=== PATIENT | male | born 1980 | race Caucasian/White ===

== ENCOUNTER 2018-12-23 03:12 | Emergency (ER) | payer SELFPAY ==
[~2018-12-23] VITALS: Ht 188 cm; Wt 122.9 kg
[2018-12-23 03:40] LABS: HEMOGLOBIN 15.8 G/DL (13.3-17.7); MEAN CORPUSCULAR HEMOGLOBIN 31 PG (25-34); WHITE BLOOD COUNT 12.4 10^3/uL (4.3-11.0)
[2018-12-23 03:41] LABS: BASOPHILS # (AUTO) 0.1 10^3/uL (0.0-0.1); BASOPHILS % (AUTO) 1 % (0-10); EOSINOPHILS # (AUTO) 0.2 10^3/uL (0.0-0.3); EOSINOPHILS % (AUTO) 2 % (0-10); HEMATOCRIT 46 % (40-54); LYMPHOCYTES # (AUTO) 3.9 X 10^3 (1.0-4.0); LYMPHOCYTES % (AUTO) 31 % (12-44); MEAN CORPUSCULAR HGB CONC 35 G/DL (32-36); MEAN CORPUSCULAR VOLUME 88 FL (80-99); MEAN PLATELET VOLUME 10.4 FL (7.4-10.4); MONOCYTES # (AUTO) 1.4 X 10^3 (0.0-1.0); MONOCYTES % (AUTO) 11 % (0-12); NEUTROPHILS # (AUTO) 6.8 X 10^3 (1.8-7.8); NEUTROPHILS % (AUTO) 55 % (42-75); PLATELET COUNT 252 10^3/uL (130-400); RED CELL DISTRIBUTION WIDTH 12.3 % (10.0-14.5)
[2018-12-23 03:58] LABS: PROTHROMBIN TIME PATIENT 13.1 SEC (12.2-14.7)
--- NOTE | 2018-12-23 03:58 | ED Cough/URI ---
General Chief Complaint: Coughing up blood Stated Complaint: COUGHING UP BLOOD Nursing Triage Note: PT STATES HE HAS BEEN COUGHING UP BLOOD TONIGHT. Sepsis Screen: No Definite Risk Source: patient, spouse History of Present Illness Date Seen by Provider: Dec 23, 2018 Time Seen by Provider: 03:12 Initial Comments 38-year-old male presenting with complaints of coughing up blood. He reports that he was having sex with his and started having a coughing fit. With this he started coughing up red to pink frothy sputum. He reports having a lot of pressure in his epigastric and center of his chest. He states that it feels very full. He reports having a lot of constant nasal drainage and sinus drainage. He does have a history of high blood pressure and takes hydrochlorothiazide and amlodipine for that. He does take aspirin for her back and body pain. He follows with Dr. Kilgore with cardiology from [facility] but had to cancel his last appointment because of vehicle troubles. He was not able to make it down to [place] for the appointment. He feels that his blood pressure medicines have not been working as well recently. However again he has not been able to make it down to see the doctor. He states that he only trusts Dr. Kilgore in terms of managing his care. Allergies and Home Medications Allergies Coded Allergies: No Known Drug Allergies (Unverified , 12/23/18) Patient Home Medication List Home Medication List Reviewed: Yes Review of Systems Review of Systems Constitutional: No chills, No dizziness, No fever, No malaise EENTM: nose congestion (chronic); No hoarseness, No epistaxis, No nose pain, No throat pain, No throat swelling Respiratory: cough, hemoptysis (started just prior to arriving in the emergency department), phlegm (chronically coughing up phlegm especially first thing in the morning) Cardiovascular: No chest pain, No edema, No palpitations, No syncope Gastrointestinal: no symptoms reported; No dysphagia, No heartburn, No nausea, No vomiting Genitourinary: no symptoms reported Musculoskeletal: no symptoms reported Skin: no symptoms reported Psychiatric/Neurological: No Symptoms Reported Past Yfnzynn-Xchvjs-Iksjut Hx Past Med/Social Hx: Reviewed Nursing Past Med/Soc Hx Patient Social History Alcohol Use: Rarely Uses Recreational Drug Use: No Smoking Status: Never a Smoker 2nd Hand Smoke Exposure: No Recent Foreign Travel: No Contact w/Someone Who Travel: No Recent Infectious Disease Expo: No Recent Hopitalizations: No Physical Abuse: No Sexual Abuse: No Mistreated: No Past Medical History Surgeries: No Respiratory: No Cardiac: Yes Chronic Edema/Swelling, Hypertension Neurological: No Genitourinary: No Gastrointestinal: No Musculoskeletal: No Endocrine: Yes Diabetes, Non-Insulin dep HEENT: No Cancer: No Psychosocial: No Integumentary: No Blood Disorders: No Physical Exam Vital Signs - First Documented 12/23/18 03:19 Temp 97.3 Pulse 110 Resp 20 B/P (MAP) 145/92 (109) Pulse Ox 92 O2 Delivery Room Air Capillary Refill : Less Than 3 Seconds Height: 6'2.00" Weight: 271lbs. oz. 122.691680bq; BMI Method:Stated General Appearance: WD/WN, mild distress (and nonstress and worried about his coughing up blood), obese HEENT: pharynx normal, other (left eye deviated with strabismus) Neck: non-tender, full range of motion, supple, normal inspection Respiratory: chest non-tender, no respiratory distress, no accessory muscle use, rhonchi Cardiovascular: normal peripheral pulses, no edema, tachycardia Gastrointestinal: normal bowel sounds, non tender, soft, no pulsatile mass Extremities: normal range of motion, non-tender, normal inspection, no pedal edema, no calf tenderness Neurologic/Psychiatric: alert, normal mood/affect, oriented x 3 Skin: normal color, warm/dry Progress/Results/Core Measures Suspected Sepsis Recent Fever Within 48 Hours: No Infection Criteria Present: None New/Unexplained Altered Menta: No Sepsis Screen: No Definite Risk SIRS Temperature:97.3 Pulse: 110 Respiratory Rate: 20 Laboratory Tests 12/23/18 03:23: White Blood Count 12.4H Blood Pressure 145 /92 Mean: 109 Laboratory Tests 12/23/18 03:23: Creatinine 0.94, INR Comment 1.0, Platelet Count 252, Total Bilirubin 0.6 Results/Orders Lab Results Laboratory Tests Test 12/23/18 03:23 Range/Units White Blood Count 12.4 H 4.3-11.0 10^3/uL Red Blood Count 5.15 4.35-5.85 10^6/uL Hemoglobin 15.8 13.3-17.7 G/DL Hematocrit 46 40-54 % Mean Corpuscular Volume 88 80-99 FL Mean Corpuscular Hemoglobin 31 25-34 PG Mean Corpuscular Hemoglobin Concent 35 32-36 G/DL Red Cell Distribution Width 12.3 10.0-14.5 % Platelet Count 252 130-400 10^3/uL Mean Platelet Volume 10.4 7.4-10.4 FL Neutrophils (%) (Auto) 55 42-75 % Lymphocytes (%) (Auto) 31 12-44 % Monocytes (%) (Auto) 11 0-12 % Eosinophils (%) (Auto) 2 0-10 % Basophils (%) (Auto) 1 0-10 % Neutrophils # (Auto) 6.8 1.8-7.8 X 10^3 Lymphocytes # (Auto) 3.9 1.0-4.0 X 10^3 Monocytes # (Auto) 1.4 H 0.0-1.0 X 10^3 Eosinophils # (Auto) 0.2 0.0-0.3 10^3/uL Basophils # (Auto) 0.1 0.0-0.1 10^3/uL Prothrombin Time 13.1 12.2-14.7 SEC INR Comment 1.0 0.8-1.4 Activated Partial Thromboplast Time 28 24-35 SEC Sodium Level 143 135-145 MMOL/L Potassium Level 3.6 3.6-5.0 MMOL/L Chloride Level 102 98-107 MMOL/L Carbon Dioxide Level 24 21-32 MMOL/L Anion Gap 17 H 5-14 MMOL/L Blood Urea Nitrogen 24 H 7-18 MG/DL Creatinine 0.94 0.60-1.30 MG/DL Estimat Glomerular Filtration Rate > 60 BUN/Creatinine Ratio 26 Glucose Level 131 H 70-105 MG/DL Calcium Level 9.5 8.5-10.1 MG/DL Corrected Calcium 8.5-10.1 MG/DL Total Bilirubin 0.6 0.1-1.0 MG/DL Aspartate Amino Transf (AST/SGOT) 24 5-34 U/L Alanine Aminotransferase (ALT/SGPT) 33 0-55 U/L Alkaline Phosphatase 60 40-136 U/L Total Protein 7.7 6.4-8.2 GM/DL Albumin 4.7 H 3.2-4.5 GM/DL My Orders Orders - CHICHO WILDER MD Cbc With Automated Diff (12/23/18 03:21) Comprehensive Metabolic Panel (12/23/18 03:21) Ed Iv/Invasive Line Start (12/23/18 03:21) Sputum Culture (12/23/18 03:21) Protime With Inr (12/23/18 03:21) Partial Thromboplastin Time (12/23/18 03:21) Ekg Tracing (12/23/18 03:40) Continuous Ekg Monitoring (12/23/18 03:40) Ct Chest W (12/23/18 03:51) Iohexol Injection (Omnipaque 350 Mg/Ml 1 (12/23/18 04:00) Ns (Ivpb) (Sodium Chloride 0.9% Ivpb Bag (12/23/18 04:00) Received Contrast (Hold Metformin- Contr (12/23/18 04:00) Ceftriaxone For Iv Use (Rocephin For I (12/23/18 05:37) Levofloxacin Tablet (Levaquin Tablet) (12/23/18 05:37) Levofloxacin Tablet (Levaquin Tablet) (12/23/18 05:35) Medications Given in ED Current Medications Medications Dose Ordered Sig/Trinity Route Start Time Stop Time Status Last Admin Dose Admin Iohexol 75 ml ONCE ONCE IV 12/23/18 04:00 12/23/18 04:01 DC 12/23/18 04:28 75 ML Sodium Chloride 100 ml ONCE ONCE IV 12/23/18 04:00 12/23/18 04:01 DC 12/23/18 04:27 100 ML Vital Signs/I&O 12/23/18 12/23/18 03:19 05:54 Temp 97.3 Pulse 110 102 Resp 20 20 B/P (MAP) 145/92 (109) 152/89 (110) Pulse Ox 92 95 O2 Delivery Room Air Room Air Capillary Refill : Less Than 3 Seconds Blood Pressure Mean: 109 Progress Note #1: Progress Note Check labs as well as electrocardiogram and CT of the chest to evaluate his sudden onset of hemoptysis. He does report having something similar happen with his nose and mouth when he had elevated blood pressure. On initial check of his blood pressure was higher when he first arrived. He stated that he take his blood pressure medicine about 30-45 minutes prior to arriving in the ED. He says that he usually takes his blood pressure medicine around 2 AM. Progress Note #2: Time: 04:50 Progress Note labs show mild elevation of WBC count, stable H/H, Coags are normal. Chemistry stable with mild elevation of his Glucose. Await CT scan with IV contrast to evaluate further for his Hemoptysis. Progress Note #3: Time: 05:[address] scan shows groundglass infiltrates in the right upper lobe and right middle lobe and portion of the right lower lobe. Findings are nonspecific and can represent a mild interstitial pneumonitis her developing interstitial alveolar hemorrhage. This was per the radiology reading from stat round by Dr. Sarah MD. With him having continued hemoptysis and cough with shortness of breath will cover him with antibiotics and d/w him transfer to [facility] for admit for pulmonary evaluation and probable bronchoscopy. Progress Note #4: Time: 05:47 Progress Note After having extensive discussion with the patient he voices understanding that he is putting himself at risk and taking his own life in his hands and could potentially have increased bleeding or possibility even but still chooses to go AGAINST MEDICAL ADVICE and they have the emergency department. He wants to go home and have his family take him to [facility]. I advised him to see Dr. Viveros with pulmonology and if he cannot get in with the clinic to be seen by Dr. Viveros today and then go to the emergency department. If his cough persists her cough gets worse this morning prior to being able to be seen them return or go immediately to the emergency department in [place]. If he felt that he needed to be seen with cardiology or Dr. Avelar then he [facility] [place] [facility] We will treat him with a dose of Rocephin IV and an oral dose of Levaquin here. As a cannot fully delineate if this or hemoptysis is from a infection of his lungs on the right side or the developing interstitial alveolar hemorrhage as reported for possible diagnosis on the CT scan I strongly urged the patient to follow up this morning with pulmonology or the ER in [place] so he could be further evaluated and treated for this. He states that he will do this but that he does not have any insurance and does not want a big bill. 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 I advised him that the hospital does have a ave program and paperwork he can fill out for financial assistance but he still wanted to go AMA and have his family take him to the hospital later this morning. ECG Initial ECG Impression Date: Dec 23, 2018 Initial ECG Impression Time: 03:32 Initial ECG Rate: 105 Initial ECG Rhythm: S.Tach Initial ECG Comparisson: No Previous ECG Available Comment Sinus tachycardia with heart rate of 105 bpm. PA interval 150 ms. Left ventricular hypertrophy with secondary repolarization abnormality. No acute ST elevation. Occasional unipolar PVC. No prior tracing for comparison Diagnostic Imaging Diagonstic Imaging: CT Plain Films/CT/US/NM/MRI: chest Comments Impression 1. Groundglass infiltrates in the right upper lobe, right middle lobe and a portion of the right lower lobe. Findings are nonspecific and can represent a mild interstitial pneumonitis or developing interstitial alveolar hemorrhage. Radiologist Dr. Dave Smith M.D. Read at 4:49 AM and initial results transmitted at 4:59 AM. Reviewed: Reviewed Night [facility] Study Departure Impression Primary Impression: Left against medical advice Additional Impressions: Cough with hemoptysis Pulmonary alveolar hemorrhage Pneumonitis Disposition: 07 AGAINST MEDICAL ADVICE Condition: Against Medical Advice Departure-Patient Inst. Decision time for Depature: 05:55 Referrals: MARK VIVEROS DO Patient Instructions: Coughing up Blood, Leaving Against Medical Advice, Pneumonitis (DC) Add. Discharge Instructions: Go to see Dr. Viveros with Pulmonology at [facility] this AM as soon as possible. If you can not get in with him emergently then go to the Emergency Department at [facility] for further treatment and evaluation of your coughing up blood. Return or be seen immediately if you have worsening symptoms All discharge instructions reviewed with patient and/or family. Voiced understanding. CHICHO WILDER MD Dec 23, 2018 03:58
[2018-12-23] MEDS ORDERED: NS 100 ML (IVPB) BAG IV ONE (04:00)
[2018-12-23] MEDS ORDERED: IOHEXOL 350 MG/ML 100 ML (OMNIPAQUE 350) VIAL IV ONE (04:00)
[2018-12-23] MEDS ORDERED: HOLD METFORMIN - RECEIVED CONTRAST 20 ML VIAL IV SCH (04:00)
[2018-12-23 04:07] LABS: BUN/CREATININE RATIO 26; CARBON DIOXIDE 24 MMOL/L (21-32); CHLORIDE 102 MMOL/L (98-107); CREATININE SERUM 0.94 MG/DL (0.60-1.30); GFR ESTIMATED > 60; GLUCOSE 131 MG/DL (70-105); POTASSIUM 3.6 MMOL/L (3.6-5.0); SODIUM 143 MMOL/L (135-145)
[2018-12-23 04:08] LABS: ALANINE AMINOTRANSFERASE 33 U/L (0-55); ALBUMIN 4.7 GM/DL (3.2-4.5); ALKALINE PHOSPHATASE 60 U/L (40-136); BILIRUBIN,TOTAL 0.6 MG/DL (0.1-1.0); CALCIUM 9.5 MG/DL (8.5-10.1); TOTAL PROTEIN 7.7 GM/DL (6.4-8.2)
[2018-12-23] MEDS ORDERED: LEVOFLOXACIN 500 MG TAB (LEVAQUIN) ONE (05:35)
[2018-12-23] MEDS ORDERED: LEVOFLOXACIN 750 MG TAB (LEVAQUIN) PO STA (05:37)
[2018-12-23] MEDS ORDERED: cefTRIAXone FOR IV USE 1,000 MG in WATER (STERILE) FOR INJECTION 10 ML IV STA (05:37)
[2018-12-23 05:54] VITALS: BP 152/89
--- NOTE | 2018-12-23 07:24 | Diagnostic Imaging Report ---
PROCEDURE: CT chest with contrast only. TECHNIQUE: Multiple contiguous axial images were obtained through the chest after administration of intravenous contrast. Auto Exposure Controls were utilized during the CT exam to meet ALARA standards for radiation dose reduction. INDICATION: Chest pain, heaviness. Hemoptysis. COMPARISON: None FINDINGS: The heart is normal in size. There is no pericardial effusion. No mediastinal adenopathy is seen. No axillary adenopathy is seen. There is no pleural effusion or pneumothorax. There is groundglass opacity seen throughout the right upper lobe and the right middle lobe and to lesser extent the lateral right lower lobe. No central endobronchial lesions are seen. No acute osseous abnormalities identified. Imaged portions of the upper abdomen demonstrate a hydropic gallbladder. There is a hypoattenuating focus in the right liver which may represent a small cyst. IMPRESSION: 1. Extensive groundglass opacities in the right upper lobe, right middle lobe, and lateral right lower lobe. This is nonspecific, but may be due to an infectious/inflammatory process, with asymmetric edema or hemorrhage in the differential as well. 2. Large gallbladder with no calcifications seen. Dictated by: Dictated on workstation # [id number]
== END 2018-12-23 05:54 | disposition left against medical advice (07) ==
LOC: ER FS 03:15
DX: J18.9 Pneumonia, unspecified organism (principal); R04.2 Hemoptysis; R04.89 Hemorrhage from other sites in respiratory passages; I10 Essential (primary) hypertension; E11.9 Type 2 diabetes mellitus without complications
CPT/HCPCS: 36415; 71260; 80053; 85025; 85610; 85730; 87070; 87205; 93005; 93041

== ENCOUNTER → 2019-01-03 | Outpatient (CLI) | payer SELFPAY ==
[~2019-01-03] MED LIST: CATHETER FLUSH 10 ML SYR IV PRN; HOLD METFORMIN - RECEIVED CONTRAST 20 ML VIAL IV SCH; IOHEXOL 350 MG/ML 100 ML (OMNIPAQUE 350) VIAL IV ONE; NS 100 ML (IVPB) BAG IV ONE
[2019-01-03 11:37] LABS: BASOPHILS % (AUTO) 0 % (0-10); EOSINOPHILS # (AUTO) 0.2 10^3/uL (0.0-0.3); EOSINOPHILS % (AUTO) 2 % (0-10); HEMATOCRIT 45 % (40-54); HEMOGLOBIN 15.6 G/DL (13.3-17.7); LYMPHOCYTES # (AUTO) 2.2 X 10^3 (1.0-4.0); LYMPHOCYTES % (AUTO) 22 % (12-44); MEAN CORPUSCULAR HEMOGLOBIN 31 PG (25-34); MEAN CORPUSCULAR HGB CONC 35 G/DL (32-36); MEAN CORPUSCULAR VOLUME 88 FL (80-99); MEAN PLATELET VOLUME 10.5 FL (7.4-10.4); MONOCYTES % (AUTO) 10 % (0-12); NEUTROPHILS # (AUTO) 6.5 X 10^3 (1.8-7.8); NEUTROPHILS % (AUTO) 66 % (42-75); PLATELET COUNT 249 10^3/uL (130-400); RED CELL DISTRIBUTION WIDTH 12.7 % (10.0-14.5); WHITE BLOOD COUNT 9.9 10^3/uL (4.3-11.0)
[2019-01-03 11:54] LABS: ALANINE AMINOTRANSFERASE 34 U/L (0-55); ALBUMIN 4.5 GM/DL (3.2-4.5); ALKALINE PHOSPHATASE 55 U/L (40-136); BILIRUBIN,TOTAL 0.7 MG/DL (0.1-1.0); BUN/CREATININE RATIO 17; CALCIUM 10.1 MG/DL (8.5-10.1); CARBON DIOXIDE 29 MMOL/L (21-32); CHLORIDE 104 MMOL/L (98-107); CREATININE SERUM 1.01 MG/DL (0.60-1.30); GFR ESTIMATED > 60; GLUCOSE 115 MG/DL (70-105); POTASSIUM 3.8 MMOL/L (3.6-5.0); SODIUM 141 MMOL/L (135-145); TOTAL PROTEIN 7.9 GM/DL (6.4-8.2)
== END ==
LOC: RAD 10:48
PROVIDERS: ATTEND Nurse Practitioner Family
DX: J30.9 Allergic rhinitis, unspecified (principal); Z53.8 Procedure and treatment not carried out for other reasons
CPT/HCPCS: 36415; 80053; 83880; 85025

== ENCOUNTER 2019-05-10 12:46 | Emergency (ER) | payer SELFPAY ==
[~2019-05-10] VITALS: Ht 182.3 cm; Wt 120.0 kg
[2019-05-10] MEDS ORDERED: D5W 100 ML BAG IV ONE (12:48)
[2019-05-10] MEDS ORDERED: SUCCINYLCHOLINE INJ 100 MG/5 ML SYR INJ ONE (12:48)
[2019-05-10] MEDS ORDERED: NS 1000 ML IV BAG IV ONE (12:48)
[2019-05-10] MEDS ORDERED: D5W 250 ML (EXCEL) BAG IV ONE (12:48)
[2019-05-10] MEDS ORDERED: AMIODARONE 450 MG/9 ML (CORDARONE) VIAL IV ONE (12:48)
[2019-05-10] MEDS ORDERED: ETOMIDATE IV SOLN 20 MG/10 ML VIAL IV ONE (12:48)
[2019-05-10] MEDS ORDERED: SODIUM BICARB 8.4% 50 MEQ/50 ML (ABBOTT) SYR INJ ONE (12:48)
[2019-05-10] MEDS ORDERED: ETOMIDATE IV SOLN 20 MG/10 ML VIAL ONE (12:52)
--- NOTE | 2019-05-10 12:54 | NUR ---
Pt arrival to ER per [facility] with report called of pt Post Code Blue-ROSC achieved but requiring advanced airway in ER. Pt was witnessed at residence after going down with 911 initiated by family and CPR began by family. The reported initial rhythm was V Fib with shocks delivered rhythms changing to Pulseless PEA with 1 dose Epi given. Pt went back into pulseless V Tach. Pt had total of 3 shocks, 1 dose Epi and 300 mg IV Amiodarone. ROSC was achieved after this. Intubation initially accomplished with Versed, Etomidate, and Succinylcholine. Pt was accidentally became extubated in transport load. BVM was in progress with initially sats noted low and Dr took over and performed a jaw thrust with holding position and added person for procedure on bagging. Supplies prepared to plan intubation as BVM's bagging achieving 95% with hyperventilating briefly. Current status arriving with IO drilled to bilat anterior mid tibial sites. NS is infusing open to L tibial site with pressure applied to bag with medication pushes. RN's placing pt on monitor, fast patch switched ER defibrillator, suctioning orally began, looking for IV peripheral sites more centrally located, and pulling up drugs. Pt continues to have BVM positive pressure bagging.
[2019-05-10] MEDS ORDERED: PROPOFOL DRIP (ICU) 100 ML IV ONE (12:59)
--- NOTE | 2019-05-10 13:00 | NUR ---
Pt's family are arriving and registration was asked to let them know an update to be provided when stabilization completed and then will also get them back to view also.
--- NOTE | 2019-05-10 13:01 | NUR ---
Pt receiving ETOMIDATE 30 mg and SUCCINYLCHOLINE 150 mg IV pre med. NIBP 149/116, HR 117, SPO2 bagging up from 85 to 95%.
--- NOTE | 2019-05-10 13:03 | NUR ---
Intubation attempt with Glidescope unsuccessful, pt very stiff necked and having to hold pt's head for positioning for
--- NOTE | 2019-05-10 13:05 | NUR ---
Re-administering pre-meds ETOMIDATE 10 MG and SUCCINYLCHOLINE 50 MG gien with a MAC 4 blade obtained. Begin intubation.
--- NOTE | 2019-05-10 13:07 | NUR ---
Pt successfully intubated with 8.5 ET tube. Positive color CO2 change, breathe sounds auscultated with diminished on right. PCXR being performed. Tube was pulled out a couple cm slightly just prior to xray.
--- NOTE | 2019-05-10 13:07 | NUR ---
Correction: Diminishment was breath sound on left side
--- NOTE | 2019-05-10 13:07 | NUR ---
NIBP 171/116, HR 123; desat noted to 80% with tube being repositioned pulling out to accommodate improvement of breath sounds on right. Continue bagging patient with less resistance and note improvement. Sats returning into 90's.
--- NOTE | 2019-05-10 13:08 | NUR ---
PCXR being completed.
--- NOTE | 2019-05-10 13:13 | NUR ---
Deep ET suctioning of blood tinged secretions and ET tube secured.
[2019-05-10] MEDS: PROPOFOL DRIP (ICU) 100 ML IV SCH ×2 (13:15→13:32)
--- NOTE | 2019-05-10 13:17 | NUR ---
CXR revealed mainstem intubate and E.T. tube withdrawn 3 cm by . Radiologist called this report and state 6 cm would be recommended. Dr Wren notes ease of bagging and improved breath sounds and SaO2 movement of just 3 cm.
--- NOTE | 2019-05-10 13:18 | Diagnostic Imaging Report ---
EXAMINATION: Chest 1 view HISTORY: Post Code Blue. COMPARISON: None available. FINDINGS: An endotracheal tube is visualized within the right mainstem bronchus. The lung volumes are low. No focal consolidation is seen. No large pleural effusion or pneumothorax is seen. The cardiomediastinal silhouette is normal in size and contour. No acute osseous abnormality is seen. IMPRESSION: 1. Right mainstem bronchus intubation. Recommend retracting the endotracheal tube approximately 6 to 7 cm. Findings were discussed with the [place] [facility] at 1:14 p.m. on 05/10/2019. Dictated by: Dictated on workstation # [id number]
[2019-05-10 13:20] LABS: BASOPHILS % (AUTO) 1 % (0-10); EOSINOPHILS % (AUTO) 1 % (0-10); HEMATOCRIT 48 % (40-54); HEMOGLOBIN 15.4 G/DL (13.3-17.7); LYMPHOCYTES % (AUTO) 25 % (12-44); MEAN CORPUSCULAR HEMOGLOBIN 30 PG (25-34); MEAN CORPUSCULAR HGB CONC 32 G/DL (32-36); MEAN CORPUSCULAR VOLUME 94 FL (80-99); MEAN PLATELET VOLUME 10.4 FL (7.4-10.4); MONOCYTES % (AUTO) 6 % (0-12); PLATELET COUNT 264 10^3/uL (130-400); RED CELL DISTRIBUTION WIDTH 12.4 % (10.0-14.5); WHITE BLOOD COUNT 23.2 10^3/uL (4.3-11.0)
--- NOTE | 2019-05-10 13:20 | Diagnostic Imaging Report ---
EXAMINATION: Chest 1 view HISTORY: Tube adjustment. CODE BLUE. COMPARISON: Chest radiograph performed earlier the same date. FINDINGS: The endotracheal tube is been retracted and is now approximately 4 cm above the pablo. The lung volumes are low. No focal consolidation is seen. No large pleural effusion or pneumothorax is seen. The cardiomediastinal silhouette is normal in size and contour. No acute osseous abnormality is seen. IMPRESSION: 1. Appropriate configuration of the endotracheal tube approximately 4 cm with the pablo. Dictated by: Dictated on workstation # [id number]
[2019-05-10 13:21] LABS: BASOPHILS # (AUTO) 0.2 10^3/uL (0.0-0.1); EOSINOPHILS # (AUTO) 0.2 10^3/uL (0.0-0.3); LYMPHOCYTES # (AUTO) 5.8 X 10^3 (1.0-4.0); MONOCYTES # (AUTO) 1.4 X 10^3 (0.0-1.0); NEUTROPHILS # (AUTO) 15.6 X 10^3 (1.8-7.8); NEUTROPHILS % (AUTO) 67 % (42-75)
--- NOTE | 2019-05-10 13:21 | NUR ---
PCXR done again. Pt is connected to Vent with settings verbal from to Sindy CHAVEZ. FIO2 70%.
--- NOTE | 2019-05-10 13:21 | NUR ---
Propofol drip began---see eMAR
--- NOTE | 2019-05-10 13:21 | NUR ---
Peripheral IV started in R FA with 20 ga. Labs drawn by KATHY
--- NOTE | 2019-05-10 13:29 | NUR ---
Peripheral IV started to L hand with 20 ga x1 attempt.
--- NOTE | 2019-05-10 13:36 | NUR ---
Vitals: NIBP 99/44, HR 104, SaO2 89%
--- NOTE | 2019-05-10 13:36 | ED CPR ---
HPI-CPR General Stated Complaint: CODE BLUE Source of Information: EMS, Family Exam Limitations: Other (code blue) History of Present Illness Date Seen by Provider: May 10, 2019 Time Seen by Provider: 12:50 (immediately on arrival) Initial Comments Patient went outside and he came back and sat in his lazy boy chair and after sometime he stood up and said "Oh Boy" and then collapsed to the floor and was unresponsive according to the family members. EMS was called and the family members started CPR. According to the paramedics patient was in V. fib initially and then went into PEA and then went into V. tach. Patient was shocked 3 times and was given 1 dose of epi and 300 mg of IV amiodarone and pulse was brought back. EMS tried to intubate him at the scene but was not able to succeed and so was brought to the freestanding emergency room at [place]. Patient was intubated in the emergency room. Labs as been drawn. Patient was trying to wake up and he was started on propofol drip at 40 mics and amidarone drip. 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 Does not have any prior history of heart attacks. Patient was on his side by the paramedics at the scene and was not able to pass the tube. Patient was brought to the emergency room bagging and he was satting at 55%. With the jaw thrust his sats improved to 95% and intubation as been attempted after giving 30 of etomidate and 150 of succinylcholine. was able to see the cords but was not able to pass a tube with a glidoscope. Patient also was not relax completely. He was given another 50 of succinylcholine and 10 of etomidate and attempted with 4 mac and the tube has been placed without any complications. Initial Complaints: Collapsed Witnessed Arrest: Yes Bystander CPR: Yes Paramedics Initial Findings: V-FIB Pre Hospital Treatment: Defibrillation, Amiodorone (mg) Allergies and Home Medications Allergies Coded Allergies: No Known Drug Allergies (Unverified , 12/23/18) Review of Systems Review of Systems Constitutional: see HPI Other Comments unable to obtain because of patients condition Past Dghsjgj-Isnvkp-Hvlhlp Hx Patient Social History 2nd Hand Smoke Exposure: No Recent Foreign Travel: No Contact w/Someone Who Travel: No Recent Hopitalizations: No Past Medical History Surgeries: No Respiratory: No Cardiac: Yes Chronic Edema/Swelling, Hypertension Neurological: No Genitourinary: No Gastrointestinal: No Musculoskeletal: No Endocrine: Yes Diabetes, Non-Insulin dep HEENT: No Cancer: No Psychosocial: No Integumentary: No Blood Disorders: No Physical Exam Vital Signs Capillary Refill : Height, Weight, BMI Height: 6'2.00" Weight: 271lbs. oz. 122.361758dt; BMI Method:Stated General Appearance: Other (unresponsive) HEENT: Normal ENT Inspection Neck: Normal Inspection Respiratory: Decreased Breath Sounds Cardiovascular: Tachycardia Gastrointestinal: Normal Bowel Sounds, No Organomegaly, No Pulsatile Mass, Non Tender, Soft Neurologic/Psychiatric: Other (unresponsive) Skin: Warm/Dry Procedures/Interventions Time of ETT Placement: 13:00 Intubation Method: orotracheal Medications: Etomidate, Succinylcholine Positive End Tide CO2: Yes Breath Sounds after Intubation: right greater than left Intubation Complications: no complications Post Intubation Xray: Yes tube in rt main stem bronchus- Pulled tube out with 21 at lip- rtp x-ray tube in place. Progress/Results/Core Measures Results/Orders Lab Results Laboratory Tests Test 05/10/19 13:10 05/10/19 13:35 05/10/19 13:50 Range/Units White Blood Count 23.2 H 4.3-11.0 10^3/uL Red Blood Count 5.07 4.35-5.85 10^6/uL Hemoglobin 15.4 13.3-17.7 G/DL Hematocrit 48 40-54 % Mean Corpuscular Volume 94 80-99 FL Mean Corpuscular Hemoglobin 30 25-34 PG Mean Corpuscular Hemoglobin Concent 32 32-36 G/DL Red Cell Distribution Width 12.4 10.0-14.5 % Platelet Count 264 130-400 10^3/uL Mean Platelet Volume 10.4 7.4-10.4 FL Neutrophils (%) (Auto) 67 42-75 % Lymphocytes (%) (Auto) 25 12-44 % Monocytes (%) (Auto) 6 0-12 % Eosinophils (%) (Auto) 1 0-10 % Basophils (%) (Auto) 1 0-10 % Neutrophils # (Auto) 15.6 H 1.8-7.8 X 10^3 Lymphocytes # (Auto) 5.8 H 1.0-4.0 X 10^3 Monocytes # (Auto) 1.4 H 0.0-1.0 X 10^3 Eosinophils # (Auto) 0.2 0.0-0.3 10^3/uL Basophils # (Auto) 0.2 H 0.0-0.1 10^3/uL Neutrophils % (Manual) 62 % Lymphocytes % (Manual) 23 % Monocytes % (Manual) 8 % Eosinophils % (Manual) 2 % Metamyelocytes % 2 % Band Neutrophils 3 % Blood Morphology Comment NORMAL Sodium Level 134 L 135-145 MMOL/L Potassium Level 4.1 3.6-5.0 MMOL/L Chloride Level 97 L 98-107 MMOL/L Carbon Dioxide Level 13 L 21-32 MMOL/L Anion Gap 24 H 5-14 MMOL/L Blood Urea Nitrogen 16 7-18 MG/DL Creatinine 1.22 0.60-1.30 MG/DL Estimat Glomerular Filtration Rate > 60 BUN/Creatinine Ratio 13 Glucose Level 348 H 70-105 MG/DL Calcium Level 8.2 L 8.5-10.1 MG/DL Corrected Calcium 8.4 L 8.5-10.1 MG/DL Magnesium Level 2.0 1.6-2.4 MG/DL Total Bilirubin 0.7 0.1-1.0 MG/DL Aspartate Amino Transf (AST/SGOT) 179 H 5-34 U/L Alanine Aminotransferase (ALT/SGPT) 223 H 0-55 U/L Alkaline Phosphatase 59 40-136 U/L Troponin I < 0.30 <0.30 NG/ML Pro-B-Type Natriuretic Peptide 714.8 H <75.0 PG/ML Total Protein 6.6 6.4-8.2 GM/DL Albumin 3.7 3.2-4.5 GM/DL Glucometer 321 H 70-110 MG/DL Urine Opiates Screen NEGATIVE NEGATIVE Urine Oxycodone Screen NEGATIVE NEGATIVE Urine Methadone Screen NEGATIVE NEGATIVE Urine Propoxyphene Screen NEGATIVE NEGATIVE Urine Barbiturates Screen NEGATIVE NEGATIVE Ur Tricyclic Antidepressants Screen NEGATIVE NEGATIVE Urine Phencyclidine Screen NEGATIVE NEGATIVE Urine Amphetamines Screen NEGATIVE NEGATIVE Urine Methamphetamines Screen NEGATIVE NEGATIVE Urine Benzodiazepines Screen NEGATIVE NEGATIVE Urine Cocaine Screen NEGATIVE NEGATIVE Urine Cannabinoids Screen NEGATIVE NEGATIVE My Orders Orders - MARY LOU ONEIL MD Chest 1 View Ap/Pa Only (05/10/19 13:04) Chest 1 View Ap/Pa Only (05/10/19 13:13) Cbc With Automated Diff (05/10/19 13:12) Comprehensive Metabolic Panel (05/10/19 13:12) Troponin I Fs (05/10/19 13:12) Probnp Fs (05/10/19 13:12) Arterial Blood Gas (05/10/19 13:12) Manual Differential (05/10/19 13:10) Magnesium (05/10/19 13:37) Ct Head Wo (05/10/19 13:37) Ct Angio Chest W (05/10/19 13:37) Magnesium 1 Gm/100 Ml Ivpb (Magnesium George (05/10/19 13:45) Sodium Bicarbonate 8.4% Vial (Sodium Bic (05/10/19 13:45) Iohexol Injection (Omnipaque 350 Mg/Ml 1 (05/10/19 13:45) Received Contrast (Hold Metformin- Contr (05/10/19 13:45) Sodium Chloride Flush (Catheter Flush Sy (05/10/19 13:45) Ns (Ivpb) (Sodium Chloride 0.9% Ivpb Bag (05/10/19 13:45) Drug Screen Stat (Urine) (05/10/19 13:47) Urinalysis (05/10/19 13:47) Ns Iv 500 Ml (Sodium Chloride 0.9%) (05/10/19 14:20) Medications Given in ED Current Medications Medications Dose Ordered Sig/Trinity Route Start Time Stop Time Status Last Admin Dose Admin Iohexol 125 ml ONCE ONCE IV 05/10/19 13:45 05/10/19 13:46 DC 05/10/19 14:24 125 ML Sodium Chloride 10 ml NEEDED PRN IV 05/10/19 13:45 05/10/19 14:24 10 ML Sodium Chloride 100 ml ONCE ONCE IV 05/10/19 13:45 05/10/19 13:46 DC 05/10/19 14:24 100 ML Progress Progress Note : Time: 14:58 Progress Note Patient was started on amiodarone drip. Patient is on propofol drip and also was giving intermittent fentanyl 100 g and he also was started on magnesium and was given one amp of bicarbonate and was started on bicarbonate drip at 75 cc per hour. 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 adviced to get ct head and ct angio chest and give magnesium 2 gm and sodium bicarb 1 am and after ABG if acidotic start on bicarb drip. Critical Care Note Critical Care Start Time: 12:50 Stop Time: 14:10 Total Time (minutes) 60 mins Departure Impression Primary Impression: Cardiac arrest Disposition: 02 XFER SHT-TRM HOSP Condition: Stable Transfer Transfer Reason: Exceeds level of care Time Spoke to Accepting Phy: 13:40 Method of Transfer: Air Departure-Patient Inst. Decision time for Depature: 14:09 MARY LOU ONEIL MD May 10, 2019 13:36
[2019-05-10 13:44] LABS: ALANINE AMINOTRANSFERASE 223 U/L (0-55); ALKALINE PHOSPHATASE 59 U/L (40-136); BILIRUBIN,TOTAL 0.7 MG/DL (0.1-1.0); BUN/CREATININE RATIO 13; CALCIUM 8.2 MG/DL (8.5-10.1); CARBON DIOXIDE 13 MMOL/L (21-32); CHLORIDE 97 MMOL/L (98-107); CREATININE SERUM 1.22 MG/DL (0.60-1.30); GFR ESTIMATED > 60; GLUCOSE 348 MG/DL (70-105); POTASSIUM 4.1 MMOL/L (3.6-5.0); SODIUM 134 MMOL/L (135-145)
--- NOTE | 2019-05-10 13:44 | NUR ---
Pt begin on AMIODARONE drip at 0.5 mg/min on Infusion pump.
[2019-05-10 13:45] LABS: ALBUMIN 3.7 GM/DL (3.2-4.5); TOTAL PROTEIN 6.6 GM/DL (6.4-8.2)
[2019-05-10] MEDS ORDERED: CATHETER FLUSH 10 ML SYR IV PRN (13:45)
[2019-05-10] MEDS ORDERED: MAGNESIUM 1 GM/100 ML IVPB 100 ML IV SCH (13:45)
[2019-05-10] MEDS ORDERED: SODIUM BICARB 8.4% 50 MEQ/50 ML VIAL IV ONE (13:45)
[2019-05-10] MEDS ORDERED: IOHEXOL 350 MG/ML 150 ML (OMNIPAQUE 350) VIAL IV ONE (13:45)
[2019-05-10] MEDS ORDERED: HOLD METFORMIN - RECEIVED CONTRAST 20 ML VIAL IV SCH (13:45)
[2019-05-10] MEDS ORDERED: NS 100 ML (IVPB) BAG IV ONE (13:45)
--- NOTE | 2019-05-10 13:45 | NUR ---
16 FR NG tube with copious lubrication placed down R nare by this RN after failed attempt bilat nares (obstructing sensation) and oral (coiled out mouth). Unable to hear sounds via auscultaion with air inserted via NG. Suction was attempted with return sound of air thru tube, no gastric contents. NG was clamped at this time. Bedside accucheck 321.
[2019-05-10 13:46] LABS: BAND NEUTROPHILS 3 %; EOSINOPHILS % (MANUAL) 2 %; LYMPHOCYTES % (MANUAL) 23 %; METAMYELOCYTES % 2 %; MONOCYTES % (MANUAL) 8 %; NEUTROPHILS % (MANUAL) 62 %; RBC MORPH NORMAL
--- NOTE | 2019-05-10 13:47 | NUR ---
NIBP 100/73, HR 96, SaO2 90%. FIO2 changed to 60% by Sindy CHAVEZ per Dr reviewing pt's vent settings. Still planning ABG, preparing pt to get a transfer accomplished. 2 RN's busy with medications and procedures. Lab reports too busy to come draw ABG's.
[2019-05-10] MEDS ORDERED: fentaNYL INJECTION 100 MCG/2 ML AMP ONE (13:50)
--- NOTE | 2019-05-10 13:50 | NUR ---
16 Fr ba placed at this time. Pt continues to react to painful stimuli with movements of jerking during catheter placement. made aware and PROPOFOL is now titrated up to 60 mcg/kg/min per Sindy CHAVEZ.
--- NOTE | 2019-05-10 13:50 | NUR ---
A third peripheral IV site started to R hand with 22 ga for continued requests for more drips.
--- NOTE | 2019-05-10 13:54 | NUR ---
UA sent to lab. Patient has return of approx 150 mg yellow urine.
--- NOTE | 2019-05-10 13:58 | NUR ---
Dr present in room and requesting ABG kit to try for ABG while RN's busy. At this time deferred it to continue with CT planned as patient has been prepared for the transport with the vent in battery mode.
--- NOTE | 2019-05-10 14:00 | NUR ---
[facility] came off standby and in route. Helga Lal assigning Rm [id number].
--- NOTE | 2019-05-10 14:02 | NUR ---
Fentanyl 100 mcg given given IV and transporting to CT. In CT [address] female staff transfer to CT table maintaining ET ventilation. Propofol, Amiodarone, and maintaining NS fluids infusing as ordered. Dr in CT and requests Bicarb amp then Bicarb drip. Also Magnesium 2 GM IV infusions ordered. BICARB [address] began.
[2019-05-10 14:05] LABS: AMPHETAMINE SCREEN, URINE NEGATIVE (NEGATIVE); BARBITURATE SCREEN URINE NEGATIVE (NEGATIVE); BENZODIAZEPINES SCREEN URINE NEGATIVE (NEGATIVE); CANNABINOID SCREEN, URINE NEGATIVE (NEGATIVE); COCAINE SCREEN URINE NEGATIVE (NEGATIVE); METHADONE STAT NEGATIVE (NEGATIVE); METHAMPHETAMINE SCREEN URINE S NEGATIVE (NEGATIVE); OPIATE SCREEN URINE NEGATIVE (NEGATIVE); OXYCODONE STAT NEGATIVE (NEGATIVE); PROPOXYPHENE STAT NEGATIVE (NEGATIVE); TRICYCLIC ANTIDEPRESSANTS SCRE NEGATIVE (NEGATIVE)
--- NOTE | 2019-05-10 14:08 | NUR ---
Pt's transfer form signed by relative with Sindy CHAVEZ giving an update and preparing them of brief plan to allow patient viewing and give their support to him before loading to [facility]. Pt remains in CT with this RN.
--- NOTE | 2019-05-10 14:10 | NUR ---
[facility] arriving on site and directed to CT for report and assistance needed with transferring pt to their cart post CT scanning in progress. Bicarb drip mixed as 1 amp to a NS 500 ml per [facility] guidance of preference for their management.
[2019-05-10] MEDS ORDERED: NS IV 500 ML 500 ML ONE (14:20)
--- NOTE | 2019-05-10 14:20 | NUR ---
[facility] now transporting via cot to [facility] with RN accompliment with pilot control operator helper for safety of pt size on cot. All drips remain infusing to 3 peripheral sites: Amiodarone, Bicarb, Propofol (not ours), and NS fluids infusing to L leg tibial IO site. Vent management per [facility] and their equipment.
--- NOTE | 2019-05-10 14:23 | NUR ---
Family viewing patient in the ER hallway during transport towards [facility]. 2 bags of MAGNESIUM 1 GM each handed to [facility] to begin.
--- NOTE | 2019-05-10 14:28 | Diagnostic Imaging Report ---
PROCEDURE: CT head without contrast. TECHNIQUE: Multiple contiguous axial images were obtained through the brain without the use of intravenous contrast. Auto Exposure Controls were utilized during the CT exam to meet ALARA standards for radiation dose reduction. INDICATION: Code Blue. COMPARISON: None. FINDINGS: The ventricles are prominent. No CT evidence of transependymal flow of CSF. There is no midline shift or mass-effect. No acute intracranial hemorrhage is seen. There is no CT evidence of acute territorial ischemia. No focal masses or collections are present. The calvarium is intact. Mucosal thickening is seen in the paranasal sinuses. A mucous retention cyst is seen in the right maxillary sinus. IMPRESSION: 1. Prominent ventricles without evidence of acute obstructive hydrocephalus. Recommend correlation with patient's history and comparison with prior exams, if possible. 2. No large acute territorial ischemia, mass, or hemorrhage. No midline shift. 3. Paranasal sinus disease. Dictated by: Dictated on workstation # [id number]
[2019-05-10 14:29] VITALS: BP 132/93
--- NOTE | 2019-05-10 14:29 | NUR ---
Departure from [facility] via [facility] in route to Helga Lal for direct admit. Call to Jun CHAVEZ and report given. Documentation has not been done at this time r/t ER acuity and will fax documents. Reported to please call back for any needs.
--- NOTE | 2019-05-10 14:38 | Diagnostic Imaging Report ---
PROCEDURE: CT angiography of the chest with contrast. TECHNIQUE: Multiple contiguous axial images were obtained through the chest after uneventful bolus administration of intravenous contrast. 3D reconstructed CTA MIP acquisitions were also performed. Auto Exposure Controls were utilized during the CT exam to meet ALARA standards for radiation dose reduction. INDICATION: Dyspnea, respiratory arrest, Code Blue. COMPARISON: None. DISCUSSION: Exam is moderately degraded by respiratory motion. Endotracheal tube in good position within the midtrachea. Extensive infiltrates are noted bilaterally within both lungs, pneumonia versus edema with likely superimposed atelectasis. There is no large or central pulmonary embolus identified. The thoracic aorta is normal in caliber and configuration. Mild cardiomegaly. No pleural or pericardial fluid. No pathologically enlarged lymph nodes identified. The enteric tube is coiled in the distal esophagus. No osseous lesion identified. The visualized upper abdomen is unremarkable. IMPRESSION: 1. Exam is degraded by motion. There is no large or central pulmonary embolus identified. 2. Patchy consolidation noted bilaterally, pneumonia and/or edema. 3. Enteric tube is coiled in the esophagus. Endotracheal tube is in good position. Dictated by: Dictated on workstation # [id number]
[2019-05-10 15:31] LABS: CLARITY,URINE SLIGHTLY CLOUDY; COLOR,URINE YELLOW
[2019-05-10 15:32] LABS: AMORPHOUS SEDIMENT,UR MOD AMOR URATES /LPF; BACTERIA,URINE NEGATIVE /HPF; BILIRUBIN,URINE NEGATIVE (NEGATIVE); GLUCOSE, URINE (UA) NEGATIVE (NEGATIVE); KETONES,URINE NEGATIVE (NEGATIVE); LEUKOCYTE ESTERASE ,URINE NEGATIVE (NEGATIVE); NITRITE,URINE NEGATIVE (NEGATIVE); PROTEIN,URINE 1+ (NEGATIVE); WBC,URINE 0-2 /HPF
[2019-05-10] MEDS ORDERED: AMIODARONE INJECTION 450 MG in D5W IV SOLUTION (EXCEL) 250 ML IV SCH (20:15)
[2019-05-10] MEDS ORDERED: fentaNYL INJECTION 100 MCG/2 ML AMP IVP PRN (21:30)
[2019-05-11] MEDS ORDERED: NS IV 500 ML 500 ML IV ONE (09:00)
== END 2019-05-10 14:29 | disposition short-term general hospital (02) ==
LOC: EDUNIT# 12:46 → ER FS 12:47
DX: I46.9 Cardiac arrest, cause unspecified (principal); I10 Essential (primary) hypertension; E11.9 Type 2 diabetes mellitus without complications
CPT/HCPCS: 31500; 36415; 36680; 51702; 70450; 71045; 71275; 80053; 80306; 81000; 82962; 83735; 83880; 84484; 85007; 85027; 93005; 96374; 96375; 99291; 99292